=== PATIENT | male | born 1950 | race Caucasian/White ===

== ENCOUNTER → 2018-11-24 | Outpatient (CLI) | payer OTHER | LOC: WOUNDCARE 12:51 | PROVIDERS: ATTEND Surgery | DX: L97.222 Non-pressure chronic ulcer of left calf with fat layer exposed (principal); L97.212 Non-pressure chronic ulcer of right calf with fat layer exposed; I87.333 Chronic venous hypertension (idiopathic) with ulcer and inflammation of bilateral lower extremity; E11.622 Type 2 diabetes mellitus with other skin ulcer; I89.0 Lymphedema, not elsewhere classified; E66.01 Morbid (severe) obesity due to excess calories; E11.22 Type 2 diabetes mellitus with diabetic chronic kidney disease; N18.3 Chronic kidney disease, stage 3 (moderate); I70.242 Atherosclerosis of native arteries of left leg with ulceration of calf; L03.116 Cellulitis of left lower limb | CPT/HCPCS: 99204 ==

== ENCOUNTER → 2018-12-01 | Outpatient (CLI) | payer OTHER | LOC: WOUNDCARE 14:08 | PROVIDERS: ATTEND Surgery | DX: E11.622 Type 2 diabetes mellitus with other skin ulcer (principal); E11.52 Type 2 diabetes mellitus with diabetic peripheral angiopathy with gangrene; E11.22 Type 2 diabetes mellitus with diabetic chronic kidney disease; I96 Gangrene, not elsewhere classified; I87.332 Chronic venous hypertension (idiopathic) with ulcer and inflammation of left lower extremity; L97.222 Non-pressure chronic ulcer of left calf with fat layer exposed; I89.0 Lymphedema, not elsewhere classified; E66.01 Morbid (severe) obesity due to excess calories; N18.3 Chronic kidney disease, stage 3 (moderate) | CPT/HCPCS: 99213 ==

== ENCOUNTER → 2018-12-08 | Outpatient (CLI) | payer OTHER | LOC: WOUNDCARE 13:53 | PROVIDERS: ATTEND Surgery | DX: L97.222 Non-pressure chronic ulcer of left calf with fat layer exposed (principal); I87.332 Chronic venous hypertension (idiopathic) with ulcer and inflammation of left lower extremity; E11.622 Type 2 diabetes mellitus with other skin ulcer; I89.0 Lymphedema, not elsewhere classified; E66.01 Morbid (severe) obesity due to excess calories; E11.22 Type 2 diabetes mellitus with diabetic chronic kidney disease; N18.3 Chronic kidney disease, stage 3 (moderate) | CPT/HCPCS: 99212 ==

== ENCOUNTER 2019-07-20 15:10 | Emergency (ER) | payer MEDICARE, OTHER ==
[~2019-07-20] VITALS: Ht 180 cm; Wt 149.0 kg
[2019-07-20] MEDS ORDERED: FURO40TA4 (15:23)
[2019-07-20] MEDS ORDERED: ALLO100T (15:23)
[2019-07-20] MEDS ORDERED: LISI2.5T (15:23)
[2019-07-20] MEDS ORDERED: CARV6.252 (15:24)
--- NOTE | 2019-07-20 15:25 | ED Integumentary General ---
General Chief Complaint: Skin/Wound Problems Stated Complaint: SKIN INFECTION ON LEGS Source: patient History of Present Illness Date Seen by Provider: July 20, 2019 Time Seen by Provider: 15:19 Initial Comments 69-year-old male presents with chronic bilateral lower extremity swelling, erythema. Reports a been a little bit more swollen red and are weeping. He is on some blood pressure medications and maybe a water pill but he is unsure what. He wanted to have him evaluated for infection. Patient reports that this is been going on for 20 years and has been a little bit worse over the last couple months. There is no acute changes. Allergies and Home Medications Patient Home Medication List Home Medication List Reviewed: Yes Review of Systems Review of Systems Constitutional: No chills, No fever Respiratory: No cough, No short of breath Cardiovascular: No chest pain; edema Gastrointestinal: no symptoms reported Genitourinary: no symptoms reported Musculoskeletal: see HPI Skin: see HPI Past Nergnla-Pfmwby-Kewein Hx Past Med/Social Hx: Reviewed Nursing Past Med/Soc Hx Patient Social History Recent Foreign Travel: No Contact w/Someone Who Travel: No Physical Exam Vital Signs Vital Signs - First Documented 07/20/19 15:19 Temp 36.2 Pulse 102 Resp 18 B/P (MAP) 132/72 (92) Pulse Ox 96 Capillary Refill : General Appearance: WD/WN, no apparent distress Cardiovascular: regular rate, rhythm Respiratory: chest non-tender, lungs clear Gastrointestinal: non tender, soft Extremities: swelling Skin: other (bilateral chronic venous stasis changes no acute infection or changes) Progress/Results/Core Measures Results/Orders Vital Signs/I&O 07/20/19 15:19 Temp 36.2 Pulse 102 Resp 18 B/P (MAP) 132/72 (92) Pulse Ox 96 Progress Progress Note : Time: 15:29 Progress Note Patient with bilateral chronic venous stasis changes. There is no evidence of infection at this time. Reviewed patient's medication with him. He is currently on Lasix 40 mg twice a day. I asked him to increase that to 80 mg in the morning and 40 in the afternoon. Also strongly suggested that he [id number] with his primary physician and wound care so that they can wrap his legs before this gets worse and monitor his progress. Patient is stable will be discharged home. Departure Impression Primary Impression: Chronic venous stasis dermatitis of both lower extremities Additional Impression: Chronic cutaneous venous stasis ulcer Disposition: HOME, SELF-CARE Condition: Stable Departure-Patient Inst. Referrals: ENRICO CHARLES MD (PCP) Primary Care Physician Patient Instructions: How to Put On and Take Off Compression Stockings, Lymphedema (DC) Add. Discharge Instructions: Increase your furosemide to 80 mg in the morning and 40 mg in the afternoon Make an appointment to see her primary care provider in wound care in the next 2-3 days. All discharge instructions reviewed with patient and/or family. Voiced understanding. CARYN CARRERA DO July 20, 2019 15:24
[2019-07-20 15:38] VITALS: BP 132/72
--- OUTSIDE RECORDS SUMMARY | 2019-07-20 17:10 | XMS REPORT | Continuity of Care Document ---
Author Organization Unknown Address Unknown Phone Unavailable Allergies There is no data. Medications There is no data. 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 11/26/2018 PATI CHACON MD, Ot I87.333 CHRONIC VENOUS HTN W ULCER AND INFLAM OF 11/26/2018 PATI CHACON MD, Ot I89 .0 LYMPHEDEMA, NOT ELSEWHERE CLASSIFIED 11/26/2018 PATI CHACON MD, Ot L03.116 CELLULITIS OF LEFT LOWER LIMB 11/26/2018 PATI CHACON MD, Ot L97.212 NON-PRESSURE CHRONIC ULCER OF RIGHT CALF 11/26/2018 PATI CHACON MD, Ot L97.222 NON-PRESSURE CHRONIC ULCER OF LEFT CALF 11/26/2018 PATI CHACON MD Ot N18 .3 CHRONIC KIDNEY DISEASE, STAGE 3 (MODERAT 12/10/2018 PATI CHACON MD, Ot E11.22 TYPE 2 DIABETES MELLITUS W DIABETIC REVERBERATORY SKIMMER 12/10/2018 PATI CHACON MD, Ot E11.622 TYPE 2 DIABETES MELLITUS WITH OTHER SKIN 12/10/2018 PATI CHACON MD, Ot E66.01 MORBID (SEVERE) OBESITY DUE TO EXCESS CA 12/10/2018 PATI CHACON MD, Ot 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 12/10/2018 PATI CHACON MD, Ot I87.333 CHRONIC VENOUS HTN W ULCER AND INFLAM OF 12/10/2018 PATI CHACON MD, Ot I89 .0 LYMPHEDEMA, NOT ELSEWHERE CLASSIFIED 12/10/2018 PATI CHACON MD, Ot L03.116 CELLULITIS OF LEFT LOWER LIMB 12/10/2018 PATI CHACON MD, Ot L97.212 NON-PRESSURE CHRONIC ULCER OF RIGHT CALF 12/10/2018 PATI CHACON MD Ot L97.222 NON-PRESSURE CHRONIC ULCER OF LEFT CALF 12/10/2018 PATI CHACON MD, Ot N18 .3 CHRONIC KIDNEY DISEASE, STAGE 3 (MODERAT 12/14/2018 PATI CHACON MD Ot E11.22 TYPE 2 DIABETES MELLITUS W DIABETIC REVERBERATORY SKIMMER 12/14/2018 PATI CHACON MD, Ot E11.622 TYPE 2 DIABETES MELLITUS WITH OTHER SKIN 12/14/2018 PATI CHACON MD Ot E66.01 MORBID (SEVERE) OBESITY DUE TO EXCESS CA 12/14/2018 PATI CHACON MD Ot I87.332 CHRONIC VENOUS HTN W ULCER AND INFLAMMAT 12/14/2018 PATI CHACON MD Ot I89 .0 LYMPHEDEMA, NOT ELSEWHERE CLASSIFIED 12/14/2018 PATI CHACON MD, Ot L97.222 NON-PRESSURE CHRONIC ULCER OF LEFT CALF 12/14/2018 PATI CHACON MD, Ot N18 .3 CHRONIC KIDNEY DISEASE, STAGE 3 (MODERAT 03/25/2019 PATI CHACON MD Ot E11.22 TYPE 2 DIABETES MELLITUS W DIABETIC REVERBERATORY SKIMMER 03/25/2019 PATI CHACON MD Ot E11.52 TYPE 2 DIABETES W DIABETIC PERIPHERAL AN 03/25/2019 PATI CHACON MD, Ot E11.622 TYPE 2 DIABETES MELLITUS WITH OTHER SKIN 03/25/2019 PATI CHACON MD Ot E66.01 MORBID (SEVERE) OBESITY DUE TO EXCESS CA 03/25/2019 PATI CHACON MD Ot I87.332 CHRONIC VENOUS HTN W ULCER AND INFLAMMAT 03/25/2019 PATI CHACON MD Ot I89 .0 LYMPHEDEMA, NOT ELSEWHERE CLASSIFIED 03/25/2019 PATI CHACON MD Ot I96 GANGRENE, NOT ELSEWHERE CLASSIFIED 03/25/2019 PATI CHACON MD Ot L97.222 NON-PRESSURE CHRONIC ULCER OF LEFT CALF 03/25/2019 PATI CHACON MD Ot N18 .3 CHRONIC KIDNEY DISEASE, STAGE 3 (MODERAT 04/30/2019 PATI CHACON MD Ot E11.22 TYPE 2 DIABETES MELLITUS W DIABETIC REVERBERATORY SKIMMER 04/30/2019 PATI CHACON MD Ot E11.622 TYPE 2 DIABETES MELLITUS WITH OTHER SKIN 04/30/2019 PATI CHACON MD Ot E66.01 MORBID (SEVERE) OBESITY DUE TO EXCESS CA 04/30/2019 PATI CHACON MD Ot I87.332 CHRONIC VENOUS HTN W ULCER AND INFLAMMAT 04/30/2019 PATI CHACON MD Ot I89 .0 LYMPHEDEMA, NOT ELSEWHERE CLASSIFIED 04/30/2019 PATI CHACON MD Ot L97.222 NON-PRESSURE CHRONIC ULCER OF LEFT CALF 04/30/2019 PATI CHACON MD Ot N18 .3 CHRONIC KIDNEY DISEASE, STAGE 3 (MODERAT Procedures There is no data. Results Test Result Range A1C - 09/12/18 13:23 HEMOGLOBIN A1c 8.4 % of total Hgb <5.7 A1C - 11/10/18 08:45 HEMOGLOBIN A1c 8.1 % of total Hgb <5.7 CULTURE, AEROBIC - 11/12/18 13:35 CULTURE, AEROBIC BACTERIA SEE NOTE NRG Encounters ACCT No. Visit Date/Time Discharge Status Pt. Type Provider Facility Loc./Unit Complaint [id number] 12/08/2018 13:00:00 12/08/2018 23:59: 59 CLS Outpatient [facility] [id number] 11/12/2018 13:15:00 Document Registration [id number] 11/10/2018 08:45:00 Document Registration [id number] 09/12/2018 13:00:00 Document Registration [id number] 12/08/2018 13:53:00 23:59:59 CLS Outpatient PATI CHACON MD [facility] [id number] 12/01/2018 14:08:00 23:59:59 CLS Outpatient PATI CHACON MD [facility] [id number] 11/24/2018 12:51:00 23:59:59 CLS Outpatient PATI CHACON MD [facility]
== END 2019-07-20 15:38 | disposition home or self-care (01) ==
LOC: EDUNIT# 15:10 → ER FS 15:12
DX: I83.219 Varicose veins of right lower extremity with both ulcer of unspecified site and inflammation (principal); I83.229 Varicose veins of left lower extremity with both ulcer of unspecified site and inflammation; L97.919 Non-pressure chronic ulcer of unspecified part of right lower leg with unspecified severity; L97.929 Non-pressure chronic ulcer of unspecified part of left lower leg with unspecified severity
CPT/HCPCS: 99282

== ENCOUNTER → 2019-08-03 | Outpatient (CLI) | payer MEDICARE ==
[~2019-08-03] MED LIST: ALLO100T; CARV6.252; FURO40TA4; LISI2.5T
[2019-08-03 16:34] LABS: BASOPHILS % (AUTO) 0 % (0-10); EOSINOPHILS # (AUTO) 0.2 10^3/uL (0.0-0.3); EOSINOPHILS % (AUTO) 2 % (0-10); HEMATOCRIT 43 % (40-54); HEMOGLOBIN 13.4 G/DL (13.3-17.7); LYMPHOCYTES # (AUTO) 1.3 X 10^3 (1.0-4.0); LYMPHOCYTES % (AUTO) 16 % (12-44); MEAN CORPUSCULAR HEMOGLOBIN 29 PG (25-34); MEAN CORPUSCULAR HGB CONC 31 G/DL (32-36); MEAN CORPUSCULAR VOLUME 93 FL (80-99); MEAN PLATELET VOLUME 8.7 FL (7.4-10.4); MONOCYTES # (AUTO) 0.8 X 10^3 (0.0-1.0); MONOCYTES % (AUTO) 10 % (0-12); NEUTROPHILS % (AUTO) 72 % (42-75); PLATELET COUNT 251 10^3/uL (130-400); RED CELL DISTRIBUTION WIDTH 15.2 % (10.0-14.5); WHITE BLOOD COUNT 8.3 10^3/uL (4.3-11.0)
[2019-08-03 16:52] LABS: ALBUMIN 4.2 GM/DL (3.2-4.5); BILIRUBIN,TOTAL 0.3 MG/DL (0.1-1.0); CALCIUM 9.4 MG/DL (8.5-10.1); CREATININE SERUM 1.63 MG/DL (0.60-1.30); POTASSIUM 4.5 MMOL/L (3.6-5.0); TOTAL PROTEIN 7.7 GM/DL (6.4-8.2)
== END ==
LOC: LAB 15:56
PROVIDERS: ATTEND Surgery
DX: E11.622 Type 2 diabetes mellitus with other skin ulcer (principal); I87.333 Chronic venous hypertension (idiopathic) with ulcer and inflammation of bilateral lower extremity; I70.242 Atherosclerosis of native arteries of left leg with ulceration of calf; L97.212 Non-pressure chronic ulcer of right calf with fat layer exposed; L97.222 Non-pressure chronic ulcer of left calf with fat layer exposed; E66.01 Morbid (severe) obesity due to excess calories
CPT/HCPCS: 36415; 80053; 83036; 84134; 85025

== ENCOUNTER → 2019-08-03 | Outpatient (CLI) | payer MEDICARE | LOC: WOUNDCARE 13:52 | PROVIDERS: ATTEND Surgery | DX: L97.212 Non-pressure chronic ulcer of right calf with fat layer exposed (principal); I87.333 Chronic venous hypertension (idiopathic) with ulcer and inflammation of bilateral lower extremity; L97.222 Non-pressure chronic ulcer of left calf with fat layer exposed; I70.242 Atherosclerosis of native arteries of left leg with ulceration of calf; E66.01 Morbid (severe) obesity due to excess calories; E11.622 Type 2 diabetes mellitus with other skin ulcer | CPT/HCPCS: 99213 ==

== ENCOUNTER → 2019-08-10 | Outpatient (CLI) | payer MEDICARE | LOC: WOUNDCARE 10:32 | PROVIDERS: ATTEND Surgery | DX: I87.333 Chronic venous hypertension (idiopathic) with ulcer and inflammation of bilateral lower extremity (principal); L97.212 Non-pressure chronic ulcer of right calf with fat layer exposed; L97.222 Non-pressure chronic ulcer of left calf with fat layer exposed; E66.01 Morbid (severe) obesity due to excess calories; E11.622 Type 2 diabetes mellitus with other skin ulcer; E11.52 Type 2 diabetes mellitus with diabetic peripheral angiopathy with gangrene | CPT/HCPCS: 99213 ==

== ENCOUNTER → 2019-08-17 | Outpatient (CLI) | payer MEDICARE | LOC: WOUNDCARE 10:18 | PROVIDERS: ATTEND Surgery | DX: I87.331 Chronic venous hypertension (idiopathic) with ulcer and inflammation of right lower extremity (principal); L97.212 Non-pressure chronic ulcer of right calf with fat layer exposed; E11.622 Type 2 diabetes mellitus with other skin ulcer; E66.01 Morbid (severe) obesity due to excess calories; I87.323 Chronic venous hypertension (idiopathic) with inflammation of bilateral lower extremity | CPT/HCPCS: 99212 ==

== ENCOUNTER 2019-11-15 10:59 | Emergency (ER) | payer MEDICARE ==
[~2019-11-15] VITALS: Ht 180.3 cm; Wt 150.0 kg
[2019-11-15 11:23] LABS: HEMATOCRIT 44 % (40-54); HEMOGLOBIN 13.5 G/DL (13.3-17.7); MEAN CORPUSCULAR HEMOGLOBIN 30 PG (25-34); WHITE BLOOD COUNT 14.1 10^3/uL (4.3-11.0)
[2019-11-15 11:24] LABS: BASOPHILS # (AUTO) 0.1 10^3/uL (0.0-0.1); BASOPHILS % (AUTO) 0 % (0-10); EOSINOPHILS # (AUTO) 0.2 10^3/uL (0.0-0.3); EOSINOPHILS % (AUTO) 1 % (0-10); LYMPHOCYTES # (AUTO) 1.1 X 10^3 (1.0-4.0); LYMPHOCYTES % (AUTO) 8 % (12-44); MEAN CORPUSCULAR HGB CONC 31 G/DL (32-36); MEAN CORPUSCULAR VOLUME 97 FL (80-99); MEAN PLATELET VOLUME 9.7 FL (7.4-10.4); MONOCYTES % (AUTO) 7 % (0-12); NEUTROPHILS # (AUTO) 11.2 X 10^3 (1.8-7.8); NEUTROPHILS % (AUTO) 80 % (42-75); PLATELET COUNT 291 10^3/uL (130-400)
[2019-11-15] MEDS ORDERED: NS IV 500 ML 500 ML IV STA (11:24)
--- NOTE | 2019-11-15 11:24 | ED GU-Female ---
General Chief Complaint: - Urinary Stated Complaint: RIGHT FLANK PAIN Source: patient, RN/MD, RN notes reviewed, old records Exam Limitations: no limitations History of Present Illness Date Seen by Provider: Nov 15, 2019 Time Seen by Provider: 11:05 Initial Comments This patient is a 69-year-old male that presents to the emergency department complaining of right flank pain. Patient also complains of urinary incontinence. Patient states it's been going on about a week. Patient states he just can't seem to want to assure. Patient was trying to provide a urine sample urinate in the floor. Patient also has chronic venous stasis changes to the lower extremities but does not appear to be acutely infected at this time. Patient denies any cough congestion. Patient states of right flank pain starts the right side and moves around toward laterally to the front. Patient denies fever. Timing/Duration: week Severity/Quality: moderate Location: right flank Radiation: generalized flank Activities at Onset: none Sexual [place] History: not active Allergies and Home Medications Allergies Coded Allergies: No Known Drug Allergies (Unverified , 11/15/19) Patient Home Medication List Home Medication List Reviewed: Yes Review of Systems Review of Systems Constitutional: No no symptoms reported; see HPI; No chills, No diaphoresis, No dizziness, No fever, No malaise, No weakness, No weight gain, No weight loss, No other EENTM: No see HPI, No no symptoms reported, No ear discharge, No hearing loss, No ear pain, No blurred vision, No double vision, No eye pain, No tearing, No vision loss, No dental problems, No hoarseness, No mouth pain, No mouth swelling, No epistaxis, No nose congestion, No nose pain, No throat pain, No throat swelling, No other Respiratory: No no symptoms reported, No see HPI, No cough, No dyspnea on exertion, No hemoptysis, No orthopnea, No phlegm, No short of breath, No stridor, No wheezing, No other Cardiovascular: No no symptoms reported, No see HPI, No chest pain, No edema, No Hx of Intervention, No palpitations, No syncope, No vascular heart diseas, No other Gastrointestinal: No RUQ, No LUQ, No RLQ, No LLQ, No no symptoms reported, No see HPI, No abdominal pain, No constipation, No diarrhea, No dysphagia, No hematemesis, No heartburn, No jaundice, No loss of appetite, No melena, No nausea, No vomiting, No other Genitourinary: denies no symptoms reported; see HPI; denies burning, denies discharge, denies dysuria; frequency, flank pain; denies hematuria; incontinence; denies pain, denies urgency, denies other Musculoskeletal: No no symptoms reported; see HPI, back pain; No gout, No joint pain, No joint swelling, No muscle pain, No muscle stiffness, No muscle cramps, No muscle twitching, No muscle weakness, No neck pain, No other Skin: No no symptoms reported; see HPI; No change in color, No change in hair/n ails, No dryness, No hx of skin cancer, No lesions, No lumps, No pruritus, No rash, No other Psychiatric/Neurological: Denies No Symptoms Reported, Denies See HPI, Denies Anxiety, Denies Depressed, Denies Emotional Problems, Denies Headache, Denies Numbness, Denies Paresthesia, Denies Pre-Existing Deficit, Denies Seizure, Denies Tingling, Denies Tremors, Denies Weakness, Denies Other All Other Systemes Reviewed Negative Unless Noted: Yes Past Ofwyjbs-Acixdj-Wetani Hx Patient Social History Alcohol Use: Denies Use Recreational Drug Use: No Smoking Status: Never a Smoker 2nd Hand Smoke Exposure: No Recent Hopitalizations: No Physical Abuse: No Sexual Abuse: No Mistreated: No Fear: No Seasonal Allergies Seasonal Allergies: Yes Past Medical History Surgeries: No (CARPAL TUNNEL RELEASE) Gallbladder, Orthopedic Respiratory: No Cardiac: Yes Chronic Edema/Swelling, Coronary Artery Disease, High Cholesterol, Hypertension, Irregular Heartbeat, Peripheral Vascular Neurological: Yes Neuropathy Genitourinary: No Gastrointestinal: No Musculoskeletal: Yes Gout Endocrine: No Diabetes, Non-Insulin dep HEENT: No Cancer: No Psychosocial: No Integumentary: Yes (CHRONIC CELLULITIS) Recent Skin Changes Blood Disorders: No Physical Exam Vital Signs Vital Signs - First Documented 11/15/19 11:12 Temp 36.0 Pulse 104 Resp 20 B/P (MAP) 168/79 (108) Pulse Ox 96 O2 Delivery Room Air Capillary Refill : Height, Weight, BMI Height: '" Weight: lbs. oz. kg; 45.00 BMI Method: General Appearance: WD/WN, no apparent distress Cardiovascular: normal peripheral pulses, regular rate, rhythm, no edema, no gallop, no JVD, no murmur Respiratory: chest non-tender, lungs clear, normal breath sounds, no respiratory distress, no accessory muscle use, respiratory distress Gastrointestinal: normal bowel sounds, non tender, soft, no organomegaly, no pulsatile mass, abnormal bowel sounds Back: normal inspection, no vertebral tenderness, CVA tenderness (R) Skin: normal color, warm/dry, other (venous stasis changes lower extremities bilaterally. Chronic) Progress/Results/Core Measures Suspected Sepsis SIRS Temperature: Pulse: Respiratory Rate: Laboratory Tests 11/15/19 11:07: White Blood Count 14.1H Blood Pressure / Mean: Laboratory Tests 11/15/19 11:07: Creatinine 1.40H, Platelet Count 291, Total Bilirubin 0.5 Results/Orders Lab Results Laboratory Tests Test 11/15/19 11:07 11/15/19 11:37 Range/Units White Blood Count 14.1 H 4.3-11.0 10^3/uL Red Blood Count 4.51 4.35-5.85 10^6/uL Hemoglobin 13.5 13.3-17.7 G/DL Hematocrit 44 40-54 % Mean Corpuscular Volume 97 80-99 FL Mean Corpuscular Hemoglobin 30 25-34 PG Mean Corpuscular Hemoglobin Concent 31 L 32-36 G/DL Red Cell Distribution Width 15.8 H 10.0-14.5 % Platelet Count 291 130-400 10^3/uL Mean Platelet Volume 9.7 7.4-10.4 FL Neutrophils (%) (Auto) 80 H 42-75 % Lymphocytes (%) (Auto) 8 L 12-44 % Monocytes (%) (Auto) 7 0-12 % Eosinophils (%) (Auto) 1 0-10 % Basophils (%) (Auto) 0 0-10 % Neutrophils # (Auto) 11.2 H 1.8-7.8 X 10^3 Lymphocytes # (Auto) 1.1 1.0-4.0 X 10^3 Monocytes # (Auto) 1.0 0.0-1.0 X 10^3 Eosinophils # (Auto) 0.2 0.0-0.3 10^3/uL Basophils # (Auto) 0.1 0.0-0.1 10^3/uL Neutrophils % (Manual) 56 % Lymphocytes % (Manual) 14 % Monocytes % (Manual) 6 % Eosinophils % (Manual) 1 % Basophils % (Manual) 1 % Metamyelocytes % 3 % Band Neutrophils 19 % Blood Morphology Comment NORMAL Sodium Level 139 135-145 MMOL/L Potassium Level 5.2 H 3.6-5.0 MMOL/L Chloride Level 101 98-107 MMOL/L Carbon Dioxide Level 26 21-32 MMOL/L Anion Gap 12 5-14 MMOL/L Blood Urea Nitrogen 40 H 7-18 MG/DL Creatinine 1.40 H 0.60-1.30 MG/DL Estimat Glomerular Filtration Rate 50 BUN/Creatinine Ratio 29 Glucose Level 434 *H 70-105 MG/DL Calcium Level 9.4 8.5-10.1 MG/DL Corrected Calcium 9.5 8.5-10.1 MG/DL Total Bilirubin 0.5 0.1-1.0 MG/DL Aspartate Amino Transf (AST/SGOT) 38 H 5-34 U/L Alanine Aminotransferase (ALT/SGPT) 59 H 0-55 U/L Alkaline Phosphatase 101 40-136 U/L Total Protein 7.9 6.4-8.2 GM/DL Albumin 3.9 3.2-4.5 GM/DL Urine Color YELLOW Urine Clarity CLEAR Urine pH 6.0 5-9 Urine Specific [place] 1.015 L 1.016-1.022 Urine Protein 2+ H NEGATIVE Urine Glucose (UA) 3+ H NEGATIVE Urine Ketones NEGATIVE NEGATIVE Urine Nitrite NEGATIVE NEGATIVE Urine Bilirubin NEGATIVE NEGATIVE Urine Urobilinogen 0.2 < = 1.0 MG/DL Urine Leukocyte Esterase NEGATIVE NEGATIVE Urine RBC (Auto) 1+ H NEGATIVE Urine RBC 5-10 H /HPF Urine WBC 2-5 /HPF Urine Crystals PRESENT H /LPF Urine Amorphous Sediment FEW MUKESH URATES H /LPF Urine Bacteria FEW H /HPF Urine Casts NONE /LPF Urine Mucus NEGATIVE /LPF Urine Culture Indicated NO My Orders Orders - ANA STEVENS MD Cbc And Manual Diff (11/15/19 11:15) Comprehensive Metabolic Panel (11/15/19 11:15) Urinalysis (11/15/19 11:15) Ct Abd/Pelvis Wo(Kidney Stone) (11/15/19 11:24) Ns Iv 500 Ml (Sodium Chloride 0.9%) (11/15/19 11:24) Ketorolac Injection (Toradol Injection) (11/15/19 11:30) Ondansetron Injection (Zofran Injectio (11/15/19 11:30) Insulin Aspart (Novolog) (Novolog (Charg (11/15/19 11:40) Ceftriaxone For Iv Use (Rocephin For I (11/15/19 12:15) Medications Given in ED Current Medications Medications Dose Ordered Sig/John Route Start Time Stop Time Status Last Admin Dose Admin Ceftriaxone Sodium 1000 mg/ Sterile Water 10 ml @ 200 mls/hr ONCE ONCE IV 11/15/19 12:15 11/15/19 12:17 DC 11/15/19 12:15 200 MLS/HR Ketorolac Tromethamine 15 mg ONCE ONCE IV 11/15/19 11:30 11/15/19 11:31 DC 11/15/19 11:35 15 MG Ondansetron HCl 4 mg ONCE ONCE IVP 11/15/19 11:30 11/15/19 11:31 DC 11/15/19 11:35 4 MG Vital Signs/I&O 11/15/19 11:12 Temp 36.0 Pulse 104 Resp 20 B/P (MAP) 168/79 (108) Pulse Ox 96 O2 Delivery Room Air Capillary Refill : Progress Note : Time: 12:38 Progress Note I discussed at length with patient about findings. Patient incontinence related to his hyperglycemia. Poorly controlled diabetes. Patient does have some mild cellulitis to left lower extremity will be dressed by nursing staff. These are chronic issues and patient's follow the wound care for the same. Patient understands needed to control his blood sugars. Patient should try to maintain at least to keep his blood sugars below 200 patient states that he's done this before when his cellulitis to his lower extremities were presented at. Patient admits he hasn't really been taking care of him lately. Patient is to encourage to have good hygienic control. Patient be given prescriptions for Bactroban ointment and doxycycline. Patient will be discharged home follow up with his PCP. Negative CT scan. Blood glucose at discharge 260. Trending downward. Encourage by mouth fluids. Maintain good hygiene. Maintain good blood sugar control try to maintain blood sugar levels below 200 follow-up with primary care physician to have adjustments of medications as needed. Continue Carbs. Dressing changes to the lower leg twice daily use medications as instructed. Follow-up with your PCP and wound care as instructed. Departure Impression Primary Impression: Lower extremity cellulitis Additional Impressions: Venous stasis dermatitis of both lower extremities Acute hyperglycemia Diabetes Back pain Disposition: 01 HOME, SELF-CARE Condition: Stable Departure-Patient Inst. Decision time for Depature: 12:41 Referrals: ENRICO CHARLES MD (PCP/Family) Primary Care Physician Patient Instructions: Hyperglycemia, Adult (DC), Diabetes Type 2 (DC), Cell ulitis (Skin Infection), Adult (DC) Add. Discharge Instructions: Encourage by mouth fluids. Maintain good hygiene. Maintain good blood sugar control try to maintain blood sugar levels below 200 follow-up with primary care physician to have adjustments of medications as needed. Continue Carbs. Dressing changes to the lower leg twice daily use medications as instructed. Follow-up with your PCP and wound care as instructed. All discharge instructions reviewed with patient and/or family. Voiced understanding. Scripts Mupirocin (Mupirocin) 22 Gm Oint...g. 22 GM TP BID, #1 TUBE 0 Refills Prov: ANA STEVENS MD 11/15/19 Doxycycline Hyclate (Doxycycline Hyclate) 100 Mg Tablet 100 MG PO BID, #20 TAB 0 Refills Prov: ANA STEVENS MD 11/15/19 ANA STEVENS MD Nov 15, 2019 11:24
[2019-11-15] MEDS ORDERED: KETOROLAC 60 MG/2 ML VIAL IV ONE (11:30)
[2019-11-15] MEDS ORDERED: ONDANSETRON 4 MG/2 ML (SDV) Z0FRAN IVP ONE (11:30)
[2019-11-15 11:39] LABS: CREATININE SERUM 1.4 MG/DL (0.60-1.30); POTASSIUM 5.2 MMOL/L (3.6-5.0)
[2019-11-15 11:40] LABS: ALBUMIN 3.9 GM/DL (3.2-4.5); BILIRUBIN,TOTAL 0.5 MG/DL (0.1-1.0); CALCIUM 9.4 MG/DL (8.5-10.1); TOTAL PROTEIN 7.9 GM/DL (6.4-8.2)
[2019-11-15] MEDS ORDERED: inSUlin ASPART (NovoLOG) 1 UNIT/0.01 ML (CHARGE PER UNIT) IV STA (11:40)
[2019-11-15 11:50] LABS: BILIRUBIN,URINE NEGATIVE (NEGATIVE); CLARITY,URINE CLEAR; COLOR,URINE YELLOW; GLUCOSE, URINE (UA) 3+ (NEGATIVE); KETONES,URINE NEGATIVE (NEGATIVE); NITRITE,URINE NEGATIVE (NEGATIVE); PROTEIN,URINE 2+ (NEGATIVE)
[2019-11-15 11:51] LABS: AMORPHOUS SEDIMENT,UR FEW AMOR URATES /LPF; BACTERIA,URINE FEW /HPF; LEUKOCYTE ESTERASE ,URINE NEGATIVE (NEGATIVE)
[2019-11-15 11:51] LABS: BAND NEUTROPHILS 19 %; BASOPHILS % (MANUAL) 1 %; EOSINOPHILS % (MANUAL) 1 %; LYMPHOCYTES % (MANUAL) 14 %; METAMYELOCYTES % 3 %; MONOCYTES % (MANUAL) 6 %; NEUTROPHILS % (MANUAL) 56 %; RBC MORPH NORMAL
[2019-11-15] MEDS ORDERED: cefTRIAXone FOR IV USE 1,000 MG in WATER (STERILE) FOR INJECTION 10 ML IV ONE (12:15)
--- NOTE | 2019-11-15 12:23 | Diagnostic Imaging Report ---
EXAMINATION: CT Abdomen Pelvis without contrast. TECHNIQUE: Multiple contiguous axial images were obtained through the abdomen and pelvis without the use of intravenous contrast. All CT scans use one or more of the following dose optimizing techniques: automated exposure control, MA and/or KvP adjustment based on a patient size and exam type, or iterative reconstruction. HISTORY: Right flank pain COMPARISON: None available. FINDINGS: Limited views of the lower thorax show coronary artery calcifications. The liver is normal without focal lesion. There is no biliary ductal dilation. Gallbladder is surgically absent. Pancreas is normal. Spleen is normal. Adrenal glands are normal. The kidneys are normal. There is no hydronephrosis. Urinary bladder is normal. Prostate is enlarged. No renal or ureteral stones are seen. Visualized bowel is normal in caliber without obstruction or inflammation. Appendix is normal. No free fluid or air. There are a few prominent retroperitoneal lymph nodes extending into both common iliac chains, but these remain subcentimeter. Aorta is normal in caliber without aneurysm. There are no suspicious osseus lesions. IMPRESSION: 1. No acute abnormality in the abdomen or pelvis. No renal or ureteral calculi. Dictated by: Dictated on workstation # [id number]
[2019-11-15] MEDS ORDERED: MUPI22OI2 TP (12:43)
[2019-11-15] MEDS ORDERED: DOXY100T2 PO (12:43)
[2019-11-15 12:51] VITALS: BP 172/80
== END 2019-11-15 12:46 | disposition home or self-care (01) ==
LOC: EDUNIT# 10:59 → ER FS 11:00
DX: L03.116 Cellulitis of left lower limb (principal); L03.115 Cellulitis of right lower limb; I87.8 Other specified disorders of veins; E11.65 Type 2 diabetes mellitus with hyperglycemia; M54.9 Dorsalgia, unspecified
CPT/HCPCS: 36415; 74176; 80053; 81000; 82962; 85007; 85027

== ENCOUNTER → 2020-10-04 | Outpatient (CLI) | payer MEDICARE ==
[~2020-10-04] MED LIST changes: +DOXY100T2 PO; +MUPI22OI2 TP
== END ==
LOC: WOUNDCARE 08:23
PROVIDERS: ATTEND Surgery
DX: I89.0 Lymphedema, not elsewhere classified (principal); E11.622 Type 2 diabetes mellitus with other skin ulcer; L97.312 Non-pressure chronic ulcer of right ankle with fat layer exposed; L97.212 Non-pressure chronic ulcer of right calf with fat layer exposed; L98.492 Non-pressure chronic ulcer of skin of other sites with fat layer exposed; L89.323 Pressure ulcer of left buttock, stage 3; E11.65 Type 2 diabetes mellitus with hyperglycemia; E66.01 Morbid (severe) obesity due to excess calories; R54 Age-related physical debility
CPT/HCPCS: 99215

== ENCOUNTER → 2020-10-19 | Outpatient (CLI) | payer MEDICARE | LOC: WOUNDCARE 14:18 | PROVIDERS: ATTEND Surgery | DX: I89.0 Lymphedema, not elsewhere classified (principal); E11.622 Type 2 diabetes mellitus with other skin ulcer; L97.312 Non-pressure chronic ulcer of right ankle with fat layer exposed; L97.212 Non-pressure chronic ulcer of right calf with fat layer exposed; L98.492 Non-pressure chronic ulcer of skin of other sites with fat layer exposed; L89.323 Pressure ulcer of left buttock, stage 3; E11.65 Type 2 diabetes mellitus with hyperglycemia; E66.01 Morbid (severe) obesity due to excess calories; E11.52 Type 2 diabetes mellitus with diabetic peripheral angiopathy with gangrene; R54 Age-related physical debility | CPT/HCPCS: 99214 ==

== ENCOUNTER → 2020-11-01 | Outpatient (CLI) | payer MEDICARE | LOC: WOUNDCARE 09:57 | PROVIDERS: ATTEND Surgery | DX: I96 Gangrene, not elsewhere classified (principal); L97.222 Non-pressure chronic ulcer of left calf with fat layer exposed; I89.0 Lymphedema, not elsewhere classified; E11.622 Type 2 diabetes mellitus with other skin ulcer; L97.312 Non-pressure chronic ulcer of right ankle with fat layer exposed; L97.212 Non-pressure chronic ulcer of right calf with fat layer exposed; E11.65 Type 2 diabetes mellitus with hyperglycemia; E66.01 Morbid (severe) obesity due to excess calories; R54 Age-related physical debility; Z68.42 Body mass index [BMI] 45.0-49.9, adult | CPT/HCPCS: 99214 ==

== ENCOUNTER → 2020-11-15 | Outpatient (CLI) | payer MEDICARE | LOC: WOUNDCARE 09:50 | PROVIDERS: ATTEND Surgery | DX: I89.0 Lymphedema, not elsewhere classified (principal); I96 Gangrene, not elsewhere classified; E11.622 Type 2 diabetes mellitus with other skin ulcer; E11.65 Type 2 diabetes mellitus with hyperglycemia; L97.312 Non-pressure chronic ulcer of right ankle with fat layer exposed; R54 Age-related physical debility; E66.01 Morbid (severe) obesity due to excess calories; Z68.42 Body mass index [BMI] 45.0-49.9, adult | CPT/HCPCS: 99213 ==

== ENCOUNTER → 2020-11-29 | Outpatient (CLI) | payer MEDICARE ==
[~2020-11-29] MED LIST changes: -LISI2.5T; +LISI2.5T13
== END ==
LOC: WOUNDCARE 09:10
PROVIDERS: ATTEND Surgery
DX: I89.0 Lymphedema, not elsewhere classified (principal); I96 Gangrene, not elsewhere classified; E11.622 Type 2 diabetes mellitus with other skin ulcer; L97.312 Non-pressure chronic ulcer of right ankle with fat layer exposed; E11.65 Type 2 diabetes mellitus with hyperglycemia; E66.01 Morbid (severe) obesity due to excess calories; R54 Age-related physical debility; Z68.42 Body mass index [BMI] 45.0-49.9, adult
CPT/HCPCS: 99212

== ENCOUNTER → 2020-12-14 | Outpatient (CLI) | payer MEDICARE | LOC: WOUNDCARE 09:59 | PROVIDERS: ATTEND Surgery | DX: I89.0 Lymphedema, not elsewhere classified (principal); E11.622 Type 2 diabetes mellitus with other skin ulcer; L97.312 Non-pressure chronic ulcer of right ankle with fat layer exposed; E11.65 Type 2 diabetes mellitus with hyperglycemia; E66.01 Morbid (severe) obesity due to excess calories; E11.52 Type 2 diabetes mellitus with diabetic peripheral angiopathy with gangrene; R54 Age-related physical debility | CPT/HCPCS: 99213 ==

== ENCOUNTER → 2020-12-27 | Outpatient (CLI) | payer MEDICARE ==
[2020-12-27 10:41] LABS: BASOPHILS # (AUTO) 0.1 10^3/uL (0.0-0.1); BASOPHILS % (AUTO) 1 % (0-10); EOSINOPHILS # (AUTO) 0.1 10^3/uL (0.0-0.3); EOSINOPHILS % (AUTO) 2 % (0-10); HEMATOCRIT 49 % (40-54); HEMOGLOBIN 15.3 g/dL (13.3-17.7); LYMPHOCYTES # (AUTO) 1.1 10^3/uL (1.0-4.0); LYMPHOCYTES % (AUTO) 14 % (12-44); MEAN CORPUSCULAR HEMOGLOBIN 31 pg (25-34); MEAN CORPUSCULAR HGB CONC 31 g/dL (32-36); MEAN CORPUSCULAR VOLUME 98 fL (80-99); MEAN PLATELET VOLUME 8.8 fL (9.0-12.2); MONOCYTES # (AUTO) 0.6 10^3/uL (0.0-1.0); MONOCYTES % (AUTO) 7 % (0-12); NEUTROPHILS % (AUTO) 76 % (42-75); PLATELET COUNT 226 10^3/uL (130-400); WHITE BLOOD COUNT 7.9 10^3/uL (4.3-11.0)
[2020-12-27 10:55] LABS: ALBUMIN 3.8 GM/DL (3.2-4.5); POTASSIUM 4.5 MMOL/L (3.6-5.0)
[2020-12-27 10:57] LABS: CALCIUM 9.9 MG/DL (8.5-10.1)
[2020-12-27 11:01] LABS: CREATININE SERUM 1.25 MG/DL (0.60-1.30)
== END ==
LOC: WOUNDCARE 10:27
PROVIDERS: ATTEND Family Medicine
DX: I89.0 Lymphedema, not elsewhere classified (principal); E11.52 Type 2 diabetes mellitus with diabetic peripheral angiopathy with gangrene; E11.622 Type 2 diabetes mellitus with other skin ulcer; L97.312 Non-pressure chronic ulcer of right ankle with fat layer exposed; E11.65 Type 2 diabetes mellitus with hyperglycemia; E66.01 Morbid (severe) obesity due to excess calories; L89.303 Pressure ulcer of unspecified buttock, stage 3; R54 Age-related physical debility; Z68.42 Body mass index [BMI] 45.0-49.9, adult
CPT/HCPCS: 80053; 83036; 85025; G0463; 36415; 99213

== ENCOUNTER → 2020-12-27 | Outpatient (CLI) | payer MEDICARE ==
--- NOTE | 2020-12-27 10:54 | Diagnostic Imaging Report ---
HISTORY: Hypertension and lower extremity soft tissue ulcers. TECHNIQUE: Ultrasound acquired ankle-brachial indices COMPARISON: None FINDINGS: Systolic blood pressure in the right brachial artery is 160 mm of Hg Systolic blood pressure in the left brachial artery is 157 mm of Hg Systolic blood pressure in the right posterior tibial artery is 199 mm of Hg The ankle brachial index (RAGHAV) on the right side is 1.24 at rest. Systolic blood pressure in the left posterior tibial artery is 231 mm of Hg The ankle brachial index (RAGHAV) on the left side is 1.49 at rest. Systolic blood pressure in the right great toe is 158 mm of Hg The toe brachial index (TBI) on the right side is 0.99 at rest. Systolic blood pressure in the left great toe is 134 mm of Hg The toe brachial index (TBI) on the left side is 0.84 at rest. Disease Severity and Ankle-Brachial Index (RAGHAV) ([facility] Vascular Laboratory Criteria) [place] [facility] Proc. October 2007;[id number]):[id number] [email or web address] Disease severity Normal: At rest >0.9 After exercise >0.9 Mild: At rest 0.8-0.9 After exercise 0.5-0.9 Moderate: At rest 0.5-0.79 After exercise 0.15-0.49 Severe: At rest <0.5 After exercise <0.15 Disease Severity and Toe Brachial Index (TBI) 0.64 +/- .20 limbs normal 0.52 =/- .20 claudication in limbs 0.23 =/- .19 limbs with ulcers or ischemic rest pain IMPRESSION: 1.Ankle-brachial index measures normal bilaterally. Dictated by: Dictated on workstation # [id number]
== END ==
LOC: RAD 09:00
PROVIDERS: ATTEND Surgery
DX: L97.312 Non-pressure chronic ulcer of right ankle with fat layer exposed (principal); L97.212 Non-pressure chronic ulcer of right calf with fat layer exposed; I10 Essential (primary) hypertension
CPT/HCPCS: 93923

== ENCOUNTER → 2021-01-02 | Outpatient (CLI) | payer MEDICARE ==
[~2021-01-02] MED LIST changes: +CATHETER FLUSH 10 ML SYR IV PRN; +HOLD METFORMIN - RECEIVED CONTRAST 20 ML VIAL IV SCH; +IOHEXOL 350 MG/ML 100 ML (OMNIPAQUE 350) VIAL IV ONE; +NS 100 ML (IVPB) BAG IV ONE
[2021-01-02 10:47] LABS: ALBUMIN 3.7 GM/DL (3.2-4.5); BILIRUBIN,TOTAL 0.8 MG/DL (0.1-1.0); CALCIUM 9.2 MG/DL (8.5-10.1); CREATININE SERUM 1.17 MG/DL (0.60-1.30); TOTAL PROTEIN 7.4 GM/DL (6.4-8.2)
[2021-01-02 11:19] LABS: POTASSIUM 4.4 MMOL/L (3.6-5.0)
--- NOTE | 2021-01-02 13:38 | Diagnostic Imaging Report ---
EXAMINATION: CT abdomen and pelvis with intravenous contrast. TECHNIQUE: Multiple contiguous axial images were obtained through the abdomen and pelvis after the uneventful administration of intravenous contrast. All CT scans use one or more of the following dose optimizing techniques: automated exposure control, MA and/or KvP adjustment based on patient size and exam type or iterative reconstruction. HISTORY: Lower extremity lymphedema. COMPARISON: 11/15/2019. FINDINGS: The heart is enlarged. The included lung bases are clear. A small amount of free fluid is seen in the upper abdomen, greatest in the left upper quadrant surrounding the spleen. This does not appear particularly dense; however, the spleen has a somewhat heterogeneous appearance. There is a tiny hypoattenuating linear defect within the spleen measuring 0.4 cm. A cyst is seen in the medial aspect of the right kidney measuring 2.5 x 1.9 cm. There is a possible enhancing component in the wall of this cyst. No evidence of hydronephrosis or renal calculi. The liver, pancreas, and adrenal glands have a normal appearance. Mildly prominent retroperitoneal lymph nodes are seen. There are also mildly prominent lymph nodes along the bilateral external iliac lymph node chains. The bowel loops are nondilated. The appendix is visualized in the right lower quadrant and has a normal appearance. There is no free air. No acute osseous abnormalities. There is a scattered small amount of atherosclerotic plaque in the aorta and iliac arteries without evidence of aneurysm. The urinary bladder is decompressed and demonstrates concentric bladder wall thickening. There is no free air, loculated collection, or adenopathy in the pelvis. IMPRESSION: 1. Small amount of free fluid in the upper abdomen, particularly in the left upper quadrant surrounding the spleen. The spleen has a heterogeneous appearance although this is often normal with contrast enhanced studies. Possible tiny linear defect is seen within the spleen. Please note, the free fluid does not appear to represent an acute hemoperitoneum based on density. Recommend correlation with history of trauma and followup as indicated. 2. Cyst in the medial aspect of the right kidney measuring 2.5 x 1.9 cm with possible small area of enhancement along the periphery of the cyst. Findings are concerning for renal cell carcinoma and followup with renal protocol CT or MRI is recommended. 3. Mildly prominent retroperitoneal and bilateral iliac lymph nodes. These are nonspecific and attention on followup is recommended. Dictated by: Dictated on workstation # [id number]
== END ==
LOC: RAD FS 09:42
PROVIDERS: ATTEND Family Medicine
DX: I89.0 Lymphedema, not elsewhere classified (principal); N28.1 Cyst of kidney, acquired
CPT/HCPCS: 36415; 74177; 80053

== ENCOUNTER → 2021-01-20 | Outpatient (CLI) | payer MEDICARE ==
[~2021-01-20] MED LIST changes: -CATHETER FLUSH 10 ML SYR IV PRN; -HOLD METFORMIN - RECEIVED CONTRAST 20 ML VIAL IV SCH; -IOHEXOL 350 MG/ML 100 ML (OMNIPAQUE 350) VIAL IV ONE; -NS 100 ML (IVPB) BAG IV ONE
== END ==
LOC: WOUNDCARE 09:52
PROVIDERS: ATTEND Family Medicine
DX: I89.0 Lymphedema, not elsewhere classified (principal); E11.622 Type 2 diabetes mellitus with other skin ulcer; L97.312 Non-pressure chronic ulcer of right ankle with fat layer exposed; E11.65 Type 2 diabetes mellitus with hyperglycemia; E66.01 Morbid (severe) obesity due to excess calories; L89.303 Pressure ulcer of unspecified buttock, stage 3; B37.2 Candidiasis of skin and nail; L03.115 Cellulitis of right lower limb; L03.116 Cellulitis of left lower limb; E11.52 Type 2 diabetes mellitus with diabetic peripheral angiopathy with gangrene; R54 Age-related physical debility
CPT/HCPCS: 99214

== ENCOUNTER → 2021-02-21 | Outpatient (CLI) | payer MEDICARE | LOC: WOUNDCARE 09:52 | PROVIDERS: ATTEND Family Medicine | DX: I89.0 Lymphedema, not elsewhere classified (principal); E11.622 Type 2 diabetes mellitus with other skin ulcer; E11.52 Type 2 diabetes mellitus with diabetic peripheral angiopathy with gangrene; L97.312 Non-pressure chronic ulcer of right ankle with fat layer exposed; E11.65 Type 2 diabetes mellitus with hyperglycemia; E66.01 Morbid (severe) obesity due to excess calories; L89.303 Pressure ulcer of unspecified buttock, stage 3; B37.2 Candidiasis of skin and nail; L03.116 Cellulitis of left lower limb; L03.115 Cellulitis of right lower limb; R54 Age-related physical debility; Z68.42 Body mass index [BMI] 45.0-49.9, adult | CPT/HCPCS: 87070; 87077; 87205; G0463; 87186 ==

== ENCOUNTER 2021-05-27 16:12 | Emergency (ER) | payer MEDICARE ==
[~2021-05-27] VITALS: Ht 180 cm; Wt 129.0 kg
--- NOTE | 2021-05-27 16:19 | ED Integumentary General ---
General Stated Complaint: WEAKNESS History of Present Illness Date Seen by Provider: May 27, 2021 Time Seen by Provider: 16:19 Initial Comments 71-year-old male presents with bilateral chronic lower extremity edema with chronic venous stasis changes and weeping of his wounds. Patient reports that this has been going on for months. He is here today because he wanted fixed and evaluated. Patient sees a home health care nurse 4 times weekly to manage it. He also wants blood work to make sure he does not have an infection. Patient reports that in 8 days he is moving to [place] where his new home as an is requesting that we help him arrange for medical transport. Patient has no acute complaints. Allergies and Home Medications Allergies Coded Allergies: No Known Drug Allergies (Unverified , 11/15/19) Patient Home Medication List Home Medication List Reviewed: Yes Allopurinol (Allopurinol) 100 Mg Tablet, (Reported) Entered as Reported by: JOE RODRIGUEZ on 07/20/19 1523 Carvedilol (Carvedilol) 6.25 Mg Tablet, (Reported) Entered as Reported by: JOE RODRIGUEZ on 07/20/19 1524 Doxycycline Hyclate (Doxycycline Hyclate) 100 Mg Tablet, 100 MG PO BID Prescribed by: ANA STEVENS on 11/15/19 1243 Furosemide (Furosemide) 40 Mg Tablet, (Reported) Entered as Reported by: JOE RODRIGUEZ on 07/20/19 1523 Lisinopril (Lisinopril) 2.5 Mg Tablet, (Reported) Entered as Reported by: JOE RODRIGUEZ on 07/20/19 1523 Mupirocin (Mupirocin) 22 Gm Oint...g., 22 GM TP BID Prescribed by: ANA STEVENS on 11/15/19 1243 Review of Systems Review of Systems Constitutional: see HPI Respiratory: no symptoms reported Cardiovascular: see HPI, edema Genitourinary: no symptoms reported Musculoskeletal: see HPI Skin: see HPI Psychiatric/Neurological: No Symptoms Reported Endocrine: No Symptoms Reported Past Ljeptro-Ivzjey-Pijaxi Hx Seasonal Allergies Seasonal Allergies: Yes Past Medical History Surgeries: No (CARPAL TUNNEL RELEASE) Gallbladder, Orthopedic Respiratory: No Cardiac: Yes Chronic Edema/Swelling, Coronary Artery Disease, High Cholesterol, Hypertension, Irregular Heartbeat, Peripheral Vascular Neurological: Yes Neuropathy Genitourinary: No Gastrointestinal: No Musculoskeletal: Yes Gout Endocrine: No Diabetes, Non-Insulin dep HEENT: No Cancer: No Psychosocial: No Integumentary: Yes (CHRONIC CELLULITIS) Recent Skin Changes Blood Disorders: No Physical Exam Vital Signs Vital Signs - First Documented 05/27/21 16:14 Temp 36.8 Pulse 88 Resp 18 B/P (MAP) 132/55 (80) Pulse Ox 95 O2 Delivery Room Air Capillary Refill : General Appearance: no apparent distress, obese Cardiovascular: normal peripheral pulses, regular rate, rhythm Respiratory: lungs clear, normal breath sounds Extremities: other (Chronic 3+ lymphedema with venous stasis changes and erythematous skin) Neurologic/Psychiatric: alert, normal mood/affect, oriented x 3 Skin Problem Location: lower extremities Skin Problem Character: other (3+ venous stasis changes with weeping feet.) Progress/Results/Core Measures Results/Orders Lab Results Laboratory Tests Test 05/27/21 17:20 Range/Units White Blood Count 9.0 4.3-11.0 10^3/uL Red Blood Count 4.50 4.30-5.52 10^6/uL Hemoglobin 14.2 13.3-17.7 g/dL Hematocrit 43 40-54 % Mean Corpuscular Volume 96 80-99 fL Mean Corpuscular Hemoglobin 32 25-34 pg Mean Corpuscular Hemoglobin Concent 33 32-36 g/dL Red Cell Distribution Width 14.6 H 10.0-14.5 % Platelet Count 103 L 130-400 10^3/uL Mean Platelet Volume 10.9 9.0-12.2 fL Sodium Level 137 135-145 MMOL/L Potassium Level 5.3 H 3.6-5.0 MMOL/L Chloride Level 100 98-107 MMOL/L Carbon Dioxide Level 17 L 21-32 MMOL/L Anion Gap 20 H 5-14 MMOL/L Blood Urea Nitrogen 51 H 7-18 MG/DL Creatinine 1.64 H 0.60-1.30 MG/DL Estimat Glomerular Filtration Rate 44 BUN/Creatinine Ratio 31 Glucose Level 141 H 70-105 MG/DL Calcium Level 9.2 8.5-10.1 MG/DL Corrected Calcium 9.4 8.5-10.1 MG/DL Total Bilirubin 0.9 0.1-1.0 MG/DL Aspartate Amino Transf (AST/SGOT) 44 H 5-34 U/L Alanine Aminotransferase (ALT/SGPT) 19 0-55 U/L Alkaline Phosphatase 138 H 40-136 U/L Total Protein 7.5 6.4-8.2 GM/DL Albumin 3.8 3.2-4.5 GM/DL My Orders Orders - CARYN CARRERA DO Cbc No Diff (05/27/21 16:21) Comprehensive Metabolic Panel (05/27/21 16:21) Cephalexin Capsule (Keflex Capsule) (05/27/21 18:15) Vital Signs/I&O 05/27/21 05/27/21 16:14 18:11 Temp 36.8 36.8 Pulse 88 88 Resp 18 18 B/P (MAP) 132/55 (80) 128/48 Pulse Ox 95 95 O2 Delivery Room Air Room Air Progress Progress Note : Progress Note Patient with significant lymphedema in his bilateral lower extremities with questionable cellulitis. I will prescribe him Keflex for 10 days to cover any probable cellulitis. He does have some mild acute kidney injury but I would like him to continue his Lasix and have it rechecked in a few days with his primary care provider. Patient is stable and discharged home. Departure Impression Primary Impression: Lymphedema of both lower extremities Additional Impressions: Venous stasis dermatitis of both lower extremities Cellulitis of right lower extremity Disposition: 01 HOME, SELF-CARE Condition: Stable Departure-Patient Inst. Referrals: ENRICO CHARLES MD (PCP/Family) Primary Care Physician Patient Instructions: Lymphedema, Wound Care (DC) Add. Discharge Instructions: Please have your home health care nurse keep your lower extremities wrapped starting at the bottom and moving up the leg Please take your Lasix as prescribed Please follow-up with primary care provider in 10 days when you arrive in [place] for recheck of your cellulitis along with a recheck of your labs. Scripts Cephalexin (Cephalexin) 500 Mg Tablet 500 MG PO QID, #20 TAB 0 Refills Prov: CARYN CARRERA DO 05/27/21 CARYN CARRERA DO May 27, 2021 16:19
[2021-05-27 17:22] LABS: HEMATOCRIT 43 % (40-54); HEMOGLOBIN 14.2 g/dL (13.3-17.7); MEAN CORPUSCULAR HEMOGLOBIN 32 pg (25-34); MEAN CORPUSCULAR HGB CONC 33 g/dL (32-36); MEAN CORPUSCULAR VOLUME 96 fL (80-99); MEAN PLATELET VOLUME 10.9 fL (9.0-12.2); PLATELET COUNT 103 10^3/uL (130-400)
[2021-05-27 17:38] LABS: ALBUMIN 3.8 GM/DL (3.2-4.5); BILIRUBIN,TOTAL 0.9 MG/DL (0.1-1.0); CALCIUM 9.2 MG/DL (8.5-10.1); CREATININE SERUM 1.64 MG/DL (0.60-1.30); POTASSIUM 5.3 MMOL/L (3.6-5.0); TOTAL PROTEIN 7.5 GM/DL (6.4-8.2)
[2021-05-27 18:11] VITALS: BP 128/48
[2021-05-27] MEDS ORDERED: CEPHALEXIN 250 MG (KEFLEX) CAP PO SCH (18:15)
[2021-05-27] MEDS ORDERED: CEPH500T PO (18:16)
== END 2021-05-27 18:18 | disposition home or self-care (01) ==
LOC: EDUNIT# 16:12 → ER FS 16:13
DX: I89.0 Lymphedema, not elsewhere classified (principal); I87.8 Other specified disorders of veins; L03.115 Cellulitis of right lower limb; N17.9 Acute kidney failure, unspecified; Z79.899 Other long term (current) drug therapy
CPT/HCPCS: 36415; 80053; 85027